=== PATIENT | male | born 1960 | race Caucasian/White ===

== ENCOUNTER 2019-02-04 10:11 | Emergency (ER) | payer BC, OTHER ==
[~2019-02-04] VITALS: Ht 182.9 cm; Wt 108.9 kg
--- NOTE | 2019-02-04 13:03 | NUR ---
PT STATES HE STOPPED TAKING HIS ELIQUIS ON SUNDAY, DUE TO POSSIBILITY OF NEEDING SURGERY ON HERNIA.
--- NOTE | 2019-02-04 13:59 | ED Abdominal Pain ---
General Chief Complaint: Abdominal/GI Problems Stated Complaint: HERNIA Nursing Triage Note: Pt has L inguinal hernia. Pt reports pain from hernia has been much worse since Sunday (01/31) Sepsis Screen: No Definite Risk Source of Information: Patient Exam Limitations: No Limitations History of Present Illness Date Seen by Provider: Feb 04, 2019 Time Seen by Provider: 13:58 Initial Comments 58-year-old male who presents to the emergency room with complaints of a right inguinal hernia. He reports that he has had the hernia for the past 10 years but the pain and swelling to the area became worse on 01/31/19. Patient denies any nausea vomiting or diarrhea. He does describe the pain as squeezing and it radiates up into his right lower quadrant. Allergies and Home Medications Allergies Coded Allergies: No Known Drug Allergies (Unverified , 02/04/19) Past Xamqbrz-Fxlpeu-Zvxuiy Hx Patient Social History Alcohol Use: Occasionally Uses Recreational Drug Use: No Smoking Status: Never a Smoker Recent Foreign Travel: No Contact w/Someone Who Travel: No Recent Infectious Disease Expo: No Recent Hopitalizations: No Immunizations Up To Date Tetanus Booster (TDap): Unknown PED Vaccines UTD: Yes Seasonal Allergies Seasonal Allergies: No Past Medical History Surgeries: Yes (BACK) Respiratory: No Cardiac: No Neurological: No Genitourinary: No Gastrointestinal: No Musculoskeletal: Yes Chronic Back Pain Endocrine: No Cancer: Yes Prostate Psychosocial: No Physical Exam Vital Signs Vital Signs - First Documented 02/04/19 11:20 Temp 97.0 Pulse 73 Resp 18 B/P (MAP) 142/92 (109) Pulse Ox 95 O2 Delivery Room Air Capillary Refill : Less Than 3 Seconds Height/Weight/BMI Height: 6'0" Weight: 240lbs. oz. 108.628553qd; BMI Method:Stated Progress/Results/Core Measures Results/Orders Lab Results Laboratory Tests Test 02/04/19 14:48 02/04/19 14:53 Range/Units White Blood Count 5.0 4.3-11.0 10^3/uL Red Blood Count 5.12 4.35-5.85 10^6/uL Hemoglobin 14.6 13.3-17.7 G/DL Hematocrit 45 40-54 % Mean Corpuscular Volume 88 80-99 FL Mean Corpuscular Hemoglobin 29 25-34 PG Mean Corpuscular Hemoglobin Concent 32 32-36 G/DL Red Cell Distribution Width 14.0 10.0-14.5 % Platelet Count 208 130-400 10^3/uL Mean Platelet Volume 9.5 7.4-10.4 FL Neutrophils (%) (Auto) 49 42-75 % Lymphocytes (%) (Auto) 32 12-44 % Monocytes (%) (Auto) 12 0-12 % Eosinophils (%) (Auto) 7 0-10 % Basophils (%) (Auto) 0 0-10 % Neutrophils # (Auto) 2.4 1.8-7.8 X 10^3 Lymphocytes # (Auto) 1.6 1.0-4.0 X 10^3 Monocytes # (Auto) 0.6 0.0-1.0 X 10^3 Eosinophils # (Auto) 0.4 H 0.0-0.3 10^3/uL Basophils # (Auto) 0.0 0.0-0.1 10^3/uL Sodium Level 140 135-145 MMOL/L Potassium Level 4.1 3.6-5.0 MMOL/L Chloride Level 105 98-107 MMOL/L Carbon Dioxide Level 26 21-32 MMOL/L Anion Gap 9 5-14 MMOL/L Blood Urea Nitrogen 14 7-18 MG/DL Creatinine 0.79 0.60-1.30 MG/DL Estimat Glomerular Filtration Rate > 60 BUN/Creatinine Ratio 18 Glucose Level 98 70-105 MG/DL Calcium Level 9.0 8.5-10.1 MG/DL Corrected Calcium 9.1 8.5-10.1 MG/DL Total Bilirubin 0.3 0.1-1.0 MG/DL Aspartate Amino Transf (AST/SGOT) 24 5-34 U/L Alanine Aminotransferase (ALT/SGPT) 22 0-55 U/L Alkaline Phosphatase 72 40-136 U/L Total Protein 6.4 6.4-8.2 GM/DL Albumin 3.9 3.2-4.5 GM/DL Amylase Level 62 25-125 U/L Lipase 61 8-78 U/L Urine Color YELLOW Urine Clarity SLIGHTLY CLOUDY Urine pH 6 5-9 Urine Specific [place] 1.015 L 1.016-1.022 Urine Protein NEGATIVE NEGATIVE Urine Glucose (UA) NEGATIVE NEGATIVE Urine Ketones NEGATIVE NEGATIVE Urine Nitrite NEGATIVE NEGATIVE Urine Bilirubin NEGATIVE NEGATIVE Urine Urobilinogen NORMAL NORMAL MG/DL Urine Leukocyte Esterase NEGATIVE NEGATIVE Urine RBC (Auto) NEGATIVE NEGATIVE Urine RBC NONE /HPF Urine WBC NONE /HPF Urine Squamous Epithelial Cells NONE /HPF Urine Crystals NONE /LPF Urine Bacteria NEGATIVE /HPF Urine Casts NONE /LPF Urine Mucus NEGATIVE /LPF Urine Culture Indicated NO My Orders Orders - MAIRA BERRIOS Comprehensive Metabolic Panel (02/04/19 13:59) Lipase (02/04/19 13:59) Amylase (02/04/19 13:59) Ua Culture If Indicated (02/04/19 13:59) Saline Lock/Iv-Start (02/04/19 13:59) Cbc With Automated Diff (02/04/19 13:59) Ct Abdomen/Pelvis W (02/04/19 13:59) Iohexol Injection (Omnipaque 350 Mg/Ml 1 (02/04/19 15:30) Received Contrast (Contrast Received) (02/04/19 15:30) Ns (Ivpb) (Sodium Chloride 0.9% Ivpb Bag (02/04/19 15:30) Iohexol Injection (Omnipaque 350 Mg/Ml 1 (02/04/19 15:45) Received Contrast (Contrast Received) (02/04/19 15:45) Ns (Ivpb) (Sodium Chloride 0.9% Ivpb Bag (02/04/19 15:45) Medications Given in ED Current Medications Medications Dose Ordered Sig/Alex Route Start Time Stop Time Status Last Admin Dose Admin Iohexol 100 ml ONCE ONCE IV 02/04/19 15:30 02/04/19 15:31 DC 02/04/19 15:42 100 ML Iohexol 100 ml ONCE ONCE IV 02/04/19 15:45 02/04/19 15:46 DC 02/04/19 15:42 100 ML Sodium Chloride 100 ml ONCE ONCE IV 02/04/19 15:30 02/04/19 15:31 DC 02/04/19 15:42 80 ML Sodium Chloride 100 ml ONCE ONCE IV 02/04/19 15:45 02/04/19 15:46 DC 02/04/19 15:47 80 ML Vital Signs/I&O 02/04/19 11:20 Temp 97.0 Pulse 73 Resp 18 B/P (MAP) 142/92 (109) Pulse Ox 95 O2 Delivery Room Air Blood Pressure Mean: 109 Progress Progress Note : Time: 16:[address] Cottrell here to see the patient. 1654: Dr. Cottrell was able to reduce the patient's inguinal hernia at this time. He recommends follow-up in his office on Sunday02/10/19. The patient agrees with plan of care, plans for discharge, return precautions were given. Initial ECG Impression Date: Feb 04, 2019 Departure Impression Primary Impression: Right inguinal hernia Disposition: HOME, SELF-CARE Condition: Stable/Unchanged Departure-Patient Inst. Decision time for Depature: 16:54 Referrals: CLEO COTTRELL DO Patient Instructions: Inguinal and Femoral (Groin) Hernias Add. Discharge Instructions: Follow-up with Dr. Cottrell's office Sunday02/10/19. Call tomorrow morning for an appointment time. Return back to the emergency room for any worsening pain, or any other concerns as needed. You may use ibuprofen and Tylenol as directed by the bottle for pain relief. All discharge instructions reviewed with patient and /or family. Voiced understanding. MAIRA BERRIOS Feb 04, 2019 13:59
[2019-02-04 14:58] LABS: BASOPHILS % (AUTO) 0 % (0-10); EOSINOPHILS # (AUTO) 0.4 10^3/uL (0.0-0.3); EOSINOPHILS % (AUTO) 7 % (0-10); HEMATOCRIT 45 % (40-54); HEMOGLOBIN 14.6 G/DL (13.3-17.7); LYMPHOCYTES # (AUTO) 1.6 X 10^3 (1.0-4.0); LYMPHOCYTES % (AUTO) 32 % (12-44); MEAN CORPUSCULAR HEMOGLOBIN 29 PG (25-34); MEAN CORPUSCULAR HGB CONC 32 G/DL (32-36); MEAN CORPUSCULAR VOLUME 88 FL (80-99); MEAN PLATELET VOLUME 9.5 FL (7.4-10.4); MONOCYTES # (AUTO) 0.6 X 10^3 (0.0-1.0); MONOCYTES % (AUTO) 12 % (0-12); NEUTROPHILS # (AUTO) 2.4 X 10^3 (1.8-7.8); NEUTROPHILS % (AUTO) 49 % (42-75); PLATELET COUNT 208 10^3/uL (130-400)
[2019-02-04 15:00] LABS: BILIRUBIN,URINE NEGATIVE (NEGATIVE); CLARITY,URINE SLIGHTLY CLOUDY; COLOR,URINE YELLOW; GLUCOSE, URINE (UA) NEGATIVE (NEGATIVE); KETONES,URINE NEGATIVE (NEGATIVE); LEUKOCYTE ESTERASE ,URINE NEGATIVE (NEGATIVE); NITRITE,URINE NEGATIVE (NEGATIVE); PH,URINE 6 (5-9); PROTEIN,URINE NEGATIVE (NEGATIVE); UROBILINOGEN,URINE NORMAL (NORMAL)
[2019-02-04 15:07] LABS: BACTERIA,URINE NEGATIVE /HPF
[2019-02-04 15:14] LABS: ALANINE AMINOTRANSFERASE 22 U/L (0-55); ALBUMIN 3.9 GM/DL (3.2-4.5); ALKALINE PHOSPHATASE 72 U/L (40-136); AMYLASE 62 U/L (25-125); BILIRUBIN,TOTAL 0.3 MG/DL (0.1-1.0); BUN/CREATININE RATIO 18; CARBON DIOXIDE 26 MMOL/L (21-32); CHLORIDE 105 MMOL/L (98-107); CREATININE SERUM 0.79 MG/DL (0.60-1.30); GFR ESTIMATED > 60; GLUCOSE 98 MG/DL (70-105); LIPASE 61 U/L (8-78); POTASSIUM 4.1 MMOL/L (3.6-5.0); SODIUM 140 MMOL/L (135-145); TOTAL PROTEIN 6.4 GM/DL (6.4-8.2)
[2019-02-04] MEDS ORDERED: RECEIVED CONTRAST 20 ML VIAL IV SCH ×2 (15:30→15:45)
[2019-02-04] MEDS ORDERED: IOHEXOL 350 MG/ML 100 ML (OMNIPAQUE 350) VIAL IV ONE ×2 (15:30→15:45)
[2019-02-04] MEDS ORDERED: NS 100 ML (IVPB) BAG IV ONE ×2 (15:30→15:45)
--- NOTE | 2019-02-04 16:13 | Diagnostic Imaging Report ---
PROCEDURE: CT abdomen and pelvis with contrast. TECHNIQUE: Multiple contiguous axial images were obtained through the abdomen and pelvis after administration of intravenous contrast. INDICATION: Prostate carcinoma. Patient complains of pelvic pain. COMPARISON: No prior studies are available for comparison. FINDINGS: Imaging through the lung bases does show a subpleural micronodule in the left lower lobe measuring 4 mm. Liver does show some mild generalized low density suggestive of hepatic steatosis. No discrete liver mass is seen. Gallbladder is unremarkable. There is no biliary ductal dilatation. The pancreas and spleen are unremarkable. No adrenal mass is seen. Kidneys are unremarkable. Aorta is nonaneurysmal. No central retroperitoneal or mesenteric lymphadenopathy is seen. Appendix is visualized in the right lower quadrant and appears unremarkable. There are bilateral inguinal hernias. Right inguinal hernia does contain small bowel. There are some mildly dilated and fluid-filled intrapelvic small bowel loops with some adjacent inflammatory stranding. Incarcerated hernia with early obstruction cannot be entirely excluded. Left inguinal hernia is fat containing. Colon is decompressed. There is no free fluid or fluid collection identified. There is no free air. The bladder is unremarkable. IMPRESSION: 1. Right inguinal hernia containing small bowel loops with some inflammatory stranding in the hernia sac and in the right pelvis with some associated fluid-filled small bowel loops which are also slightly dilated. Incarcerated hernia with early or partial obstruction cannot be excluded. No other significant abnormality is seen. Dictated by: Dictated on workstation # [id number]
[2019-02-04 17:10] VITALS: BP 135/86
--- NOTE | 2019-02-04 17:26 | Consultation ---
History of Present Illness History of Present Illness Patient Consulted On(heather/time) 02/04/19 17:21 Date Seen by Provider: Feb 04, 2019 Time Seen by Provider: 16:51 History of Present Illness consult requested by Shahzad Vera for right inguinal hernia patient seen and evaluated in the emergency department. Patient is a 58-year-old male who has had a right inguinal hernia for approximately 10 years. Patient states that usually goes in and out. Usually standing up and activity makes it pop out and cause some slight discomfort. Patient states that laying down and relaxing causes a to reduce. Patient states over last 2 months it seems to got a little bit larger and has been causing a little bit more discomfort. Patient states his last Sunday he's been having a little bit more discomfort than usual. He states his squeezing type pain sensation. It radiates up in the right quadrant of the abdomen. He states that once it reduced down that the pain has resolved. Patient had a CT scan demonstrating a right inguinal hernia with a little bit of inflammatory changes. Patient also notes recent back surgery which changes make his back a little bit weaker and just more concerned with the hernia as well. No other complaints this time. Denies any nausea vomiting fever sweats chills shortness of breath or chest pain. He has a history of blood clots and is on Eliquis. Allergies and Home Medications Allergies Coded Allergies: No Known Drug Allergies (Unverified , 02/04/19) Patient Home Medication List Home Medication List Reviewed: Yes Past Pquyehp-Bnwhhj-Frnbby Hx Patient Social History Alcohol Use: Occasionally Uses Recreational Drug Use: No Smoking Status: Never a Smoker Recent Foreign Travel: No Contact w/Someone Who Travel: No Recent Infectious Disease Expo: No Recent Hopitalizations: No Immunizations Up To Date Tetanus Booster (TDap): Unknown PED Vaccines UTD: Yes Seasonal Allergies Seasonal Allergies: No Surgeries History of Surgeries: Yes (BACK) Respiratory History of Respiratory Disorde: No Cardiovascular History of Cardiac Disorders: No Neurological History of Neurological Disord: No Genitourinary History of Genitourinary Disor: No Gastrointestinal History of Gastrointestinal Di: No Musculoskeletal History of Musculoskeletal Dis: Yes Musculoskeletal Disorders: Chronic Back Pain Endocrine History of Endocrine Disorders: No Cancer History of Cancer: Yes Cancer: Prostate Psychosocial History of Psychiatric Problem: No Integumentary History of Skin or Integumenta: No Blood Transfusions History of Blood Disorders: Yes (blood clots) Family Medical History Significant Family History: No Pertinent Family Hx Review of Systems-General Constitutional: no symptoms reported EENTM: no symptoms reported Respiratory: no symptoms reported Cardiovascular: no symptoms reported Gastrointestinal: see HPI Genitourinary: no symptoms reported Musculoskeletal: no symptoms reported Skin: no symptoms reported Psychiatric/Neurological: No Symptoms Reported Physical Exam-General Problems Physical Exam Vital Signs Vital Signs - First Documented 02/04/19 11:20 Temp 97.0 Pulse 73 Resp 18 B/P (MAP) 142/92 (109) Pulse Ox 95 O2 Delivery Room Air Capillary Refill : Less Than 3 Seconds General Appearance: WD/WN, no apparent distress HEENT: PERRL/EOMI, normal ENT inspection Neck: non-tender, full range of motion, supple Respiratory: chest non-tender, no respiratory distress, no accessory muscle use Cardiovascular: regular rate, rhythm Gastrointestinal: normal bowel sounds, non tender, soft, hernia (right inguinal reducible) Rectal: deferred Back: no CVA tenderness Extremities: normal range of motion, non-tender, normal inspection Neurologic/Psychiatric: 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, no motor/sensory deficits, alert, normal mood/affect Skin: normal color, warm/dry Lymphatic: no adenopathy Data Review Labs Laboratory Tests 02/04/19 14:48: White Blood Count 5.0, Red Blood Count 5.12, Hemoglobin 14.6, Hematocrit 45, Mean Corpuscular Volume 88, Mean Corpuscular Hemoglobin 29, Mean Corpuscular Hemoglobin Concent 32, Red Cell Distribution Width 14.0, Platelet Count 208, Mean Platelet Volume 9.5, Neutrophils (%) (Auto) 49, Lymphocytes (%) (Auto) 32, Monocytes (%) (Auto) 12, Eosinophils (%) (Auto) 7, Basophils (%) (Auto) 0, Neutrophils # (Auto) 2.4, Lymphocytes # (Auto) 1.6, Monocytes # (Auto) 0.6, Eosinophils # (Auto) 0.4H, Basophils # (Auto) 0.0, Sodium Level 140, Potassium Level 4.1, Chloride Level 105, Carbon Dioxide Level 26, Anion Gap 9, Blood Urea Nitrogen 14, Creatinine 0.79, Estimat Glomerular Filtration Rate > 60, BUN/ Creatinine Ratio 18, Glucose Level 98, Calcium Level 9.0, Corrected Calcium 9.1 , Total Bilirubin 0.3, Aspartate Amino Transf (AST/SGOT) 24, Alanine Aminotransferase (ALT/SGPT) 22, Alkaline Phosphatase 72, Total Protein 6.4, Albumin 3.9, Amylase Level 62, Lipase 61 02/04/19 14:53: Urine Color YELLOW, Urine Clarity SLIGHTLY CLOUDY, Urine pH 6, Urine Specific [place] 1.015L, Urine Protein NEGATIVE, Urine Glucose (UA) NEGATIVE, Urine Ketones NEGATIVE, Urine Nitrite NEGATIVE, Urine Bilirubin NEGATIVE, Urine Urobilinogen NORMAL, Urine Leukocyte Esterase NEGATIVE, Urine RBC (Auto) NEGATIVE, Urine RBC NONE, Urine WBC NONE, Urine Squamous Epithelial Cells NONE, Urine Crystals NONE, Urine Bacteria NEGATIVE, Urine Casts NONE, Urine Mucus NEGATIVE, Urine Culture Indicated NO Assessment/Plan Assessment/Plan Assessment/Plan right inguinal hernia History of blood clots on Eliquis Patient is a 58-year-old male with right inguinal hernia. With patient laying down this did reduce. Patient not having any pain with it reduced. Patient CT scan reviewed and discussed findings with him. Since this is easily reduced recommend outpatient follow-up and repair. Patient is in agreement with plan. Patient was discuss risk of strangulation which he understands. If any worsening of condition he should be reevaluated at that time. CLEO JAIME DO Feb 04, 2019 17:26
== END 2019-02-04 17:10 | disposition home or self-care (01) ==
LOC: EDUNIT# 10:11 → ER 10:12
DX: K40.90 Unilateral inguinal hernia, without obstruction or gangrene, not specified as recurrent (principal); Z85.46 Personal history of malignant neoplasm of prostate
CPT/HCPCS: 36415; 74177; 80053; 81000; 82150; 83690; 85025

== ENCOUNTER 2019-02-18 05:39 | Outpatient (CLI) | payer BC ==
[~2019-02-18] VITALS: Ht 182.9 cm; Wt 108.9 kg
[2019-02-18] MEDS ORDERED: APIX5TAB PO (14:24)
[2019-02-18] MEDS ORDERED: ESCI20TA PO (14:24)
[2019-02-18] MEDS ORDERED: BUPR300T51 PO (14:24)
== END 2019-02-18 14:41 | disposition home or self-care (01) ==
LOC: PREOP 05:39
PROVIDERS: ATTEND Surgery
DX: Z01.818 Encounter for other preprocedural examination (principal)

== ENCOUNTER 2019-02-20 07:19 | Day surgery (SDC) | payer BC ==
[~2019-02-20] VITALS: Ht 182.9 cm; Wt 108.9 kg
[~2019-02-20 07:19] MED LIST: APIX5TAB PO; BUPR300T51 PO; ESCI20TA PO
--- OUTSIDE RECORDS SUMMARY | 2019-02-20 07:39 | XMS REPORT | Clinical Summary ---
Author Author [facility] Organization [facility] Address Unknown Phone Unavailable Care Team Providers Care Puller Over Name Role Phone Jennifer Carmichael MD PCP Source Comments Some departments are not documenting in the electronic medical record. If you do not see the information that you expected, contact Release of Information in the Health Information Management department at [phone] for further assistance in locating additional records.[facility] Allergies No Known Allergies Medications End Date Status Medication Sig Dispensed Refills Start Date Active buPROPion XL (WELLBUTRIN Take 300 mg 0 XL) 300 mg tablet by mouth every morning. Do not crush or chew. Active escitalopram oxalate Take 20 mg by 0 (LEXAPRO) 20 mg tablet mouth daily. Active ibuprofen (MOTRIN) 800 mg Take 800 mg 0 tablet by mouth every 6 hours as needed for Pain. Take with food. Active Needle (Disp) 27 G 27 Use as 20 each gauge x 1/2" directed. 8 ndleIndications: Erectile dysfunction following radical prostatectomy Active Syringe (Disposable) 1 mL Use as 20 Syringe 11 syrgIndications: Erectile directed. 8 dysfunction following radical prostatectomy Active pseudoephedrine (SUDAFED) Take 1-2 24 tablet 60 mg tablet tablets by 8 mouth as Needed (If erection lasting longer than 2-4 hrs.). Active ELIQUIS 5 mg tablet TAKE 1 TABLET 60 tablet 3 BY MOUTH 8 TWICE DAILY Active alprostadil 20 mcg/mL Inject 0.5 mL 5 mL 3 soln IC into base of 8 inj(cmpd)Indications: penis as Erectile Dysfunction directed as Needed (Slowly increase by 0.1 mL/inj to lowest effective dose.Max 1 injection/ 24-48 hrs.). Active Problems Problem Noted Date Deep vein thrombosis (DVT) of right lower extremity 07/11/2017 Overview: following radical prostatectomy -- 05/14/2017. Hypercoagulable state, primary 03/26/2017 Overview: History of DVT while hospitalized at [facility] in 2005. (+)heterozygous for V Leiden and (+)lupus inhibitor. History of prostate cancer 03/16/2017 Overview: 02/15/2017: PSA=26.89 ng/mL. 02/19/2017: (L) Anitra 4+3=7 (Grade group 3), 5/6 cores, 50-70%; Dr. Chatterjee. 05/14/2017: Non-nerve Sparing Robotic Asst Lap Prostatectomy (RALP); Dr. Zuniga. pT3a N0 Mx, [place] 8 (Grade group 4), (+)(L) distal urethral margin, (-)LVI. L ast Assessment & Plan: Saw urology today. PSA is great at 0.01. Continue follow up every 6 mo with urology. Erectile dysfunction following radical prostatectomy Overview: Non-nerve sparing Robotic Asst Lap Prostatectomy (RALP); Dr. Zuniga. Tried PDE-5 inhibitors w/o results. Tried vacuum erection device (JANELLE) + constriction ring --> (+)significant discomfort d/t ring. Taught intracavernosal injection (ICI) -- 06/10/2018. L ast Assessment & Plan: Continue Alprostadil 20 mcg/mL; 10 mcg (0.5 mL)/ inj prn. SHERRI (stress urinary incontinence), male Overview: Post-prostatectomy SHERRI. L ast Assessment & Plan: Continue Kegel exercises prn. 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 On Eliquis 5 mg BID and ASA without any issues. Having major back surgery on 11/11. Ortho instructs to hold Eliquis 3 days prior to surgery and will resume post-op. Agree with plan. From hematology aspect, okay to undergo surgery with plans to restart anticoagulation within 24 hours of surgery. Follow up in 6 mo as scheduled. History of DVT (deep vein thrombosis) Overview: Following back surgery -- 2005. Following radical prostatectomy -- 05/14/2017. Chronic anticoagulation GERD (gastroesophageal reflux disease) Inguinal hernia, right Last Assessment & Plan: Discussed indications for possible elective surgical intervention. He is not interested in referral to General Surgery at this time. Encounters Care Team Description Date Type Specialty Wing Encarnacion MD 02/17/2019 Documentation Oncology Wing Encarnacion MD Medication Question 02/17/2019 Telephone Oncology from Last 3 Months Social History Date Tobacco Use Types Packs/Day Years Used Never Smoker Smokeless Tobacco: Former Chew Quit: 11/26/2016 User Alcohol Use Drinks/Week oz/Week Comments Yes 24 Cans of 14.4 frequently beer Sex Assigned at Date Recorded Not on file Industry Job Start Date Occupation Not on file Not on file Not on file Travel End Travel History Travel Start No recent travel history available. Last Filed Vital Signs Time Taken Vital Sign Reading 11/06/2018 9:33 AM CABLE STRANDER Blood Pressure 137/89 11/06/2018 9:33 AM CABLE STRANDER Pulse 76 11/06/2018 9:33 AM CABLE STRANDER Temperature 36.8 C (98.2 F) 11/06/2018 9:33 AM CABLE STRANDER Respiratory Rate 19 11/06/2018 9:33 AM CABLE STRANDER Oxygen Saturation 99% - Inhaled Oxygen - Concentration 11/06/2018 9:33 AM CABLE STRANDER Weight 109.3 kg (241 lb) 11/06/2018 9:33 AM CABLE STRANDER Height 182.9 cm (6') 11/06/2018 9:33 AM CABLE STRANDER Body Mass Index 32.69 Plan of Treatment Health Maintenance Due Date Last Done Comments HEPATITIS C SCREENING 1962 PHYSICAL (COMPREHENSIVE) 1969 EXAM HIV SCREENING 1977 DTAP/TDAP VACCINES (1 - 1980 Tdap) COLORECTAL CANCER 2012 SCREENING SHINGLES RECOMBINANT 2012 VACCINE (1 of 2) INFLUENZA VACCINE 06/26/2018 Results Not on filefrom Last 3 Months Insurance Type Payer Benefit Subscriber ID Effective Phone Address Plan / Dates Group PPO BCBS [employer] xxxxxxxxxxxxxx 2018- BLUE OUT Present OF STATE Advance Directives Patient has advance care planning documents, and code status on file. For more information, please contact: [facility] [address] [place] [address] Date Inactivated Comments Code Status Date Activated 05/15/2017 5:42 PM Full Code 05/14/2017 3:32 PM Provider has discussed Code Status Yes w/Patient or Family?
--- OUTSIDE RECORDS SUMMARY | 2019-02-20 07:39 | XMS REPORT | Clinical Summary ---
Author Author [facility] Organization [facility] Address Unknown Phone Unavailable Care Team Providers Care Vehicle Controls Engineer Name Role Phone PCP Unavailable Allergies Not on File Current Medications Not on file Active Problems Not on file Social History Tobacco Use Types Packs/Day Years Used Date Never Assessed Sex Assigned at Date Recorded Not on file Last Filed Vital Signs Not on file Plan of Treatment Not on file Results Not on filefrom Last 3 Months
--- OUTSIDE RECORDS SUMMARY | 2019-02-20 07:39 | XMS REPORT | Encounter Summary ---
Author Author [facility] Organization [facility] Address Unknown Phone Unavailable Care Team Providers Care Video Machines Mechanic Name Role Phone Jennifer Carmichael MD PCP Encounter Details Care Team Description Date Type Department Wing Encarnacion MD [address] [place] [address] [phone] 02/17/2019 Documentation [facility] [address] [place] [address] Social History Date Tobacco Use Types Packs/Day Years Used Never Smoker Smokeless Tobacco: Former Chew Quit: 11/26/2016 User Alcohol Use Drinks/Week oz/Week Comments Yes 24 Cans of 14.4 frequently beer Sex Assigned at Date Recorded Not on file Industry Job Start Date Occupation Not on file Not on file Not on file Travel End Travel History Travel Start No recent travel history available. documented as of this encounter Functional Status Date of Assessment Functional Status Response 11/06/2018 Does the patient have a hearing impairment: No 03/06/2018 Does the patient have a visual impairment: Yes 11/06/2018 Does the patient have impaired ambulation: No 11/06/2018 Does the patient have an activity of daily living No (ADL) impairment: 11/06/2018 Does the patient have an instrumental activity of No daily living (IADL) impairment: Date of Assessment Cognitive Status Response 11/06/2018 Does the patient have a cognitive impairment: No documented as of this encounter Progress Notes * Jenelle Johnson RN - 02/17/2019 9:34 AM CDT RN routed OV from 10/2018 form [facility] WANG to Dr. Cottrell's office [phone]. RN called patient to notify him to we sent OV to his surgeons office again today. RN called patient to remind him per Dr. Encarnacion's request to Eliquis 3 days prior to surgery and resume day after surgery. Patient verbalized understanding. documented in this encounter Plan of Treatment Not on filedocumented as of this encounter Visit Diagnoses Not on filedocumented in this encounter
--- OUTSIDE RECORDS SUMMARY | 2019-02-20 07:39 | XMS REPORT | Encounter Summary ---
Author Author [facility] Organization [facility] Address Unknown Phone Unavailable Care Team Providers Care Admission Specialist Name Role Phone Jennifer Carmichael MD PCP Reason for Visit * Reason Comments Medication Question Encounter Details Care Team Description Date Type Department Wing Encarnacion MD [address] [place] [address] [phone] Medication Question 02/17/2019 Telephone [facility] [address] [place] [address] Social History Date Tobacco Use Types Packs/Day [...] impairment: No documented as of this encounter Miscellaneous Notes * Telephone Encounter - Ruth Soto RN - 02/17/2019 8:32 AM CDT Marylou has had the office paged today as Dr. Cottrell will plan to take Marylou to surgery on for hernia repair. He currently takes eliquis 5mg BID and has verbalized that he stopped in order to proceed with surgery. Dr. Cottrell will need a letter of clearance and confirmation from our office. I have let Marylou know that I would pass the information to RN and Dr. Encarnacion for clearance. Information can be faxed to [phone]. documented in this encounter Plan of Treatment Not on filedocumented as of this encounter Visit Diagnoses Not on filedocumented in this encounter
--- NOTE | 2019-02-20 08:15 | Progress Note-Pre Operative ---
Pre-Operative Progress Note H&P Reviewed The H&P was reviewed, patient examined and no changes noted. Date Seen by Provider: Feb 20, 2019 Time Seen by Provider: 08:14 Date H&P Reviewed: Feb 20, 2019 Time H&P Reviewed: 08:14 Pre-Operative Diagnosis: right inguinal hernia CLEO JAIME DO Feb 20, 2019 08:15
[2019-02-20] MEDS ORDERED: LACTATED RINGERS 1,000 ML IV PRN (08:22)
[2019-02-20] MEDS ORDERED: ceFAZolin 2 GM IV Premixed 50 ML IV ONE (08:30)
[2019-02-20] MEDS ORDERED: CATHETER FLUSH 10 ML SYR IV PRN (08:30)
[2019-02-20 08:45] VITALS: BP 139/91
[2019-02-20] MEDS ORDERED: LIDOCAINE PF 2% 5 ML (XYLOCAINE) VIAL ONE (08:56)
[2019-02-20] MEDS ORDERED: fentaNYL INJECTION 100 MCG/2 ML AMP ONE (08:56)
[2019-02-20] MEDS ORDERED: DEXAMETHASONE 10 MG/ML (DECADRON) 1 ML VIAL ONE (08:56)
[2019-02-20] MEDS ORDERED: proPOfol 200 MG/20 ML (DIPRIVAN) VIAL IV ONE (08:56)
[2019-02-20] MEDS ORDERED: SEVOFLURANE (ULTANE) 15 ML INHAL SOLN ONE ×3 (08:56→11:29)
[2019-02-20] MEDS ORDERED: ONDANSETRON 4 MG/2 ML (SDV) Z0FRAN ONE (08:56)
[2019-02-20] MEDS ORDERED: MIDAZOLAM 2 MG/2 ML (VERSED) VIAL ONE (08:56)
[2019-02-20] MEDS ORDERED: FAMOTIDINE 20MG/2ML IV (PEPCID) IV ONE (09:00)
[2019-02-20] MEDS ORDERED: FAMOTIDINE 20MG/2ML IV (PEPCID) ONE (09:03)
[2019-02-20] MEDS ORDERED: LIDOCAINE/EPI 1%-1:100,000 (XYLOCAINE) 20ML ONE (09:06)
[2019-02-20] MEDS ORDERED: BUPIVACAINE 0.5% 30 ML (SENSORCAINE) VIAL ONE (09:06)
[2019-02-20] MEDS ORDERED: BUPIVACAINE 0.25% 30 ML (SENSORCAINE) VIAL ONE (11:09)
[2019-02-20] MEDS ORDERED: morphine INJ 10 MG/ML 1ML (SYR OR VIAL) IVP ONE (11:30)
[2019-02-20] MEDS ORDERED: HYDROmorphone 2 MG/ML VIAL (DILAUDID) IV ONE (11:30)
[2019-02-20] MEDS ORDERED: ONDANSETRON 4 MG/2 ML (SDV) Z0FRAN IVP PRN (11:30)
[2019-02-20] MEDS ORDERED: MEPERIDINE (DEMEROL) INJ 50 MG/ML IVP ONE (11:30)
--- NOTE | 2019-02-20 11:40 | Progress Note-Post Operative ---
Post-Operative Progess Note Surgeon (s)/Official Greeter (s) Surgeon CLEO JAIME DO Official Greeter: vero Pre-Operative Diagnosis right inguinal hernia Post-Operative Diagnosis same Procedure & Operative Findings Date of Procedure 02/20/19 Procedure Performed/Findings right inguinal hernia repair excision cord lipoma Anesthesia Type gen Estimated Blood Loss Estimated blood loss (mL): min Specimens/Packing Specimens Removed hernia sac, cord lipoma CLEO JAIME DO Feb 20, 2019 11:40
[2019-02-20] MEDS ORDERED: ACHD5005 PO (11:41)
[2019-02-20] MEDS ORDERED: DOCU-143 PO (11:41)
--- NOTE | 2019-02-20 11:42 | Discharge Inst-Simple/Standard ---
Discharge Inst-Standard Discharge Medications New, Converted or Re-Newed RX: RX on Chart Patient Instructions/Follow Up Plan of Care/Instructions/FU: 2 weeks Simba Restart Eliquis in 5 days. Activity as Tolerated: No Discharge Diet: Regular Diet Other Inst to Patient Follow up Appt: Make appointment for 2 week. Instructions: No lifting greater than 10 pounds. No strenuous activity. May shower in 24 hours, no tub bath or soaking. Use incentive spirometer at home as directed. No Smoking Skin/Wound Care: You ahve special glue over incisions it will fall off on its own. Symptoms to Report: Appetite Changes, Extremity Discoloration, Numbness/Tingling, Swelling Increased , Bleeding Excessive, Eyesight Changes, Pain Increased, Urine Color Change, Constipation(Persistent), Fever over 101 degree F, Pain/Pressure in chest, Urinating Difficulty, Cough Up/Vomit Blood, Heart Beat Irreg/Pounding, Pain/ Pressure in jaw, Vaginal Bleeding Increase, Cramps in feet or legs, Lightheadedness, Pain/Pressure in shoulder, Diarrhea(Persistent), Memory Changes Suddenly, Questions/Concerns, Weight gain consecutive days, Dizziness/ Fainting, Nausea/Vomiting, Shortness of Breath, Weight gain over 2 pounds If questions or concerns contact your physician Or seek help at emergency department. CLEO JAIME DO Feb 20, 2019 11:42
[2019-02-20 12:25] VITALS: BP 116/81
[2019-02-20 12:55] VITALS: BP 120/78
[2019-02-20 13:25] VITALS: BP 130/88
[2019-02-20 14:00] VITALS: BP 130/88
--- NOTE | 2019-02-20 14:51 | Anesthesia-General Post-Op ---
General Patient Condition Mental Status/LOC: Same as Preop Cardiovascular: Satisfactory Nausea/Vomiting: Absent Respiratory: Satisfactory Pain: Controlled Complications: Absent Post Op Complications Complications None Follow Up Care/Instructions Patient Instructions None needed. Anesthesia/Patient Condition Patient Condition Patient was seen after the procedure and he was doing well, no complaints, stable vital signs, no apparent adverse anesthesia problems. VALERY MARTINEZ DO Feb 20, 2019 14:51
--- NOTE | 2019-02-21 03:54 | OPERATIVE REPORT ---
DATE OF SERVICE: 02/20/2019 PREOPERATIVE DIAGNOSIS: Right inguinal hernia. POSTOPERATIVE DIAGNOSES: Right inguinal hernia and cord lipoma. SURGEON: Cleo Cottrell DO HAND MEAT SALTER: Dr. Beltran, assisted in retraction, dissection, and closure. ANESTHESIA: General. ESTIMATED BLOOD LOSS: Minimal. COMPLICATIONS: None. INDICATIONS: The patient is a 58-year-old male with a large right inguinal hernia for a significant amount of time. He understands risks and benefits of having it repaired. He understands risks and benefits and wishes to proceed. Consent was signed on the chart. PROCEDURE: The patient was taken to the operating suite, was prepped and draped in sterile fashion. Timeout was performed. Local anesthetic was used to infiltrate the subcutaneous tissue and skin. A #15 blade scalpel was used to make incision in the right lower quadrant. Dissection was taken down to the external oblique, which the external ring was found. Local anesthetic was infiltrated just below the external oblique and the external oblique was then opened down through the external ring. The spermatic cord was then dissected around bluntly and a Albert drain was placed around it. A large cord lipoma present and there was no direct defect. The hernia sac was then began to be dissected off of the spermatic cord, which was also opened. There is no hernia contents within it. This was then twisted and suture ligated at the base. The cord lipoma was then excised off of the cord. The ProGrip mesh was then secured to Vignesh's ligament. It was then incorporated around the spermatic cord at the internal ring. Prior to putting in the mesh, the defect of the internal ring was also closed partially. The wound was then irrigated with copious amounts of irrigation. The external oblique was then closed using 3-0 Vicryl and recreated the external ring. The subcutaneous tissues were then reapproximated using 3-0 Vicryl. Skin was then closed using 4-0 Monocryl in a running subcuticular fashion. The area was washed and dried and Skin Affix was placed over the incisions. The patient tolerated procedure well without any complications. He was taken to recovery room in stable condition. Job ID: [id number] DocumentID: [id number] Dictated Date: 02/20/2019 22:28:01 Real Estate Sales Supervisor Date: 02/21/2019 03:53:47 Dictated By: CLEO COTTRELL DO
== END 2019-02-20 14:00 | disposition home or self-care (01) ==
LOC: SDC 07:19
PROVIDERS: ATTEND Surgery
DX: K40.90 Unilateral inguinal hernia, without obstruction or gangrene, not specified as recurrent (principal); D17.6 Benign lipomatous neoplasm of spermatic cord; F41.9 Anxiety disorder, unspecified; F32.9 Major depressive disorder, single episode, unspecified; Z86.718 Personal history of other venous thrombosis and embolism; Z79.01 Long term (current) use of anticoagulants; Z79.899 Other long term (current) drug therapy
CPT/HCPCS: 87081; 94664